=== PATIENT | male | born 1950 | race Caucasian/White ===

== ENCOUNTER 2020-12-28 06:00 | Outpatient (RCR) | payer MEDICARE, OTHER, SELFPAY | END 2021-01-09 23:59 | disposition home or self-care (01) | LOC: SPT 06:00 | PROVIDERS: Referring Provider Orthopaedic Surgery; Visit Provider Orthopaedic Surgery | DX: Z47.1 Aftercare following joint replacement surgery (principal); Z96.611 Presence of right artificial shoulder joint | CPT/HCPCS: 97110; 97161 ==

== ENCOUNTER 2021-01-10 06:00 | Outpatient (RCR) | payer MEDICARE, OTHER, SELFPAY | END 2021-02-08 16:50 | disposition home or self-care (01) | LOC: SPT 06:00 | PROVIDERS: Visit Provider Orthopaedic Surgery | DX: Z47.1 Aftercare following joint replacement surgery (principal); Z96.611 Presence of right artificial shoulder joint | CPT/HCPCS: 97110 ==

== ENCOUNTER 2021-11-17 11:51 | Outpatient (CLI) | payer MEDICARE, SELFPAY ==
--- NOTE | 2021-11-17 12:45 | XR_ITS ---
WS: [id number] RIGHT FOOT: 3 VIEW(S) TECHNIQUE: AP, oblique and lateral. HISTORY: L89.893 - Pressure ulcer of other site, stage 3 COMPARISON: None available. No acute fracture or dislocation. No destructive bone lesions are identified. 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 Seen only on the lateral projection is a superficial soft tissue ulceration along the plantar surface of the distal first toe. Ulcer measures 11 mm in length and extends 4 mm deep. The underlying bone r adiographically is normal. Large osteophyte at the Achilles insertion tendon. XR/XR foot RT min 3V* [id number] IMPRESSION: 1. Superficial soft tissue ulceration measures 11 x 4 mm along the plantar geremias face distal first toe. No osseous abnormality identified radiographically. 2. No acute fracture.
[2021-11-17 12:59] LABS: Erythrocyte Sedimentation Rate 21 mm/hr (0-10)
[2021-11-17 13:26] LABS: C Reactive Protein 4.3 mg/L (0.0-4.9)
== END 2021-11-17 11:52 | disposition home or self-care (01) ==
LOC: LAB 11:57
PROVIDERS: PCP Family Medicine; Visit Provider Nurse Practitioner Family
DX: L89.893 Pressure ulcer of other site, stage 3 (principal)
CPT/HCPCS: 36415; 73630; 85651; 86140

== ENCOUNTER → 2021-11-24 10:48 | Outpatient (BNVA) | payer MEDICARE, SELFPAY | PROVIDERS: PCP Family Medicine; Visit Provider Nurse Practitioner Family | DX: I96 Gangrene, not elsewhere classified (principal); L89.893 Pressure ulcer of other site, stage 3 | CPT/HCPCS: 11042 ==

== ENCOUNTER → 2021-12-01 10:51 | Outpatient (BNVA) | payer MEDICARE, SELFPAY | PROVIDERS: PCP Family Medicine; Visit Provider Thoracic Surgery (Cardiothoracic Vascular Surgery) | DX: I96 Gangrene, not elsewhere classified (principal); L89.893 Pressure ulcer of other site, stage 3 | CPT/HCPCS: 97597; A6250 ==

== ENCOUNTER → 2021-12-08 13:48 | Outpatient (BNVA) | payer MEDICARE, SELFPAY | PROVIDERS: PCP Family Medicine; Visit Provider Nurse Practitioner Family | DX: I96 Gangrene, not elsewhere classified (principal); L89.893 Pressure ulcer of other site, stage 3 | CPT/HCPCS: 11042 ==

== ENCOUNTER → 2021-12-15 13:05 | Outpatient (BNVA) | payer MEDICARE, SELFPAY | PROVIDERS: PCP Family Medicine; Visit Provider Nurse Practitioner Family | DX: I96 Gangrene, not elsewhere classified (principal); L89.893 Pressure ulcer of other site, stage 3 | CPT/HCPCS: 11042; A6212 ==

== ENCOUNTER → 2021-12-22 09:36 | Outpatient (BNVA) | payer MEDICARE, SELFPAY | PROVIDERS: PCP Family Medicine; Visit Provider Nurse Practitioner Family | DX: I96 Gangrene, not elsewhere classified (principal); L89.893 Pressure ulcer of other site, stage 3 | CPT/HCPCS: 11042 ==

== ENCOUNTER → 2021-12-29 09:20 | Outpatient (BNVA) | payer MEDICARE, SELFPAY | PROVIDERS: PCP Family Medicine; Visit Provider Nurse Practitioner Family | DX: I96 Gangrene, not elsewhere classified (principal); L89.893 Pressure ulcer of other site, stage 3 | CPT/HCPCS: 99213 ==

== ENCOUNTER → 2022-01-05 09:14 | Outpatient (BNVA) | payer MEDICARE, SELFPAY | PROVIDERS: PCP Family Medicine; Visit Provider Nurse Practitioner Family | DX: I96 Gangrene, not elsewhere classified (principal); L89.893 Pressure ulcer of other site, stage 3 | CPT/HCPCS: 11042 ==

== ENCOUNTER → 2022-01-12 09:11 | Outpatient (BNVA) | payer MEDICARE, SELFPAY | PROVIDERS: PCP Family Medicine; Visit Provider Nurse Practitioner Family | DX: I96 Gangrene, not elsewhere classified (principal); L89.893 Pressure ulcer of other site, stage 3 | CPT/HCPCS: 11042 ==

== ENCOUNTER → 2022-01-19 09:21 | Outpatient (BNVA) | payer MEDICARE, SELFPAY | PROVIDERS: PCP Family Medicine; Visit Provider Nurse Practitioner Family | DX: I96 Gangrene, not elsewhere classified (principal); L89.893 Pressure ulcer of other site, stage 3 | CPT/HCPCS: 11042 ==

== ENCOUNTER → 2022-01-26 09:52 | Outpatient (BNVA) | payer MEDICARE, SELFPAY | PROVIDERS: PCP Family Medicine; Visit Provider Nurse Practitioner Family | DX: I96 Gangrene, not elsewhere classified (principal); L89.893 Pressure ulcer of other site, stage 3 | CPT/HCPCS: 11042; A6206 ==

== ENCOUNTER → 2022-02-01 08:24 | Outpatient (BNVA) | payer MEDICARE, SELFPAY | PROVIDERS: PCP Family Medicine; Visit Provider Nurse Practitioner Family | DX: I96 Gangrene, not elsewhere classified (principal); L89.893 Pressure ulcer of other site, stage 3 | CPT/HCPCS: 11042; A6206; A6250 ==

== ENCOUNTER → 2022-02-09 08:58 | Outpatient (BNVA) | payer MEDICARE, SELFPAY | PROVIDERS: PCP Family Medicine; Visit Provider Nurse Practitioner Family | DX: I96 Gangrene, not elsewhere classified (principal); L89.893 Pressure ulcer of other site, stage 3 | CPT/HCPCS: 11042 ==

== ENCOUNTER → 2022-02-16 08:36 | Outpatient (BNVA) | payer MEDICARE, SELFPAY | PROVIDERS: PCP Family Medicine; Visit Provider Nurse Practitioner Family | DX: I96 Gangrene, not elsewhere classified (principal); L89.893 Pressure ulcer of other site, stage 3 | CPT/HCPCS: 11042 ==

== ENCOUNTER → 2022-02-23 08:56 | Outpatient (BNVA) | payer MEDICARE, SELFPAY | PROVIDERS: PCP Family Medicine; Visit Provider Thoracic Surgery (Cardiothoracic Vascular Surgery) | DX: I96 Gangrene, not elsewhere classified (principal); L89.893 Pressure ulcer of other site, stage 3 | CPT/HCPCS: 11042 ==

== ENCOUNTER → 2022-03-02 08:56 | Outpatient (BNVA) | payer MEDICARE, SELFPAY | PROVIDERS: PCP Family Medicine; Visit Provider Thoracic Surgery (Cardiothoracic Vascular Surgery) | DX: L89.893 Pressure ulcer of other site, stage 3 (principal) | CPT/HCPCS: 11042 ==

== ENCOUNTER → 2022-03-15 16:20 | Outpatient (BNVA) | payer MEDICARE, SELFPAY | PROVIDERS: PCP Family Medicine; Visit Provider Thoracic Surgery (Cardiothoracic Vascular Surgery) | DX: I96 Gangrene, not elsewhere classified (principal); L89.893 Pressure ulcer of other site, stage 3 | CPT/HCPCS: 11042 ==

== ENCOUNTER 2022-03-21 07:20 | Outpatient (CLI) | payer MEDICARE, SELFPAY ==
--- NOTE | 2022-03-21 07:15 | MR_ITS ---
WS: [id number] MRI RIGHT FOOT with and without CONTRAST. COMPARISON: Radiograph RIGHT foot 11/17/2021 Multiplanar, multisequence imaging is performed with and without contrast. MultiHance 20 mL IV. Abnormal signal distal phalanx of the first toe. Low signal on the T1 sequences with increased signal throughout the entire distal phalanx of the T2 and proton density sequence. Diffuse osseous enhancem ent on the postcontrast sequence. Enhancement extends through the interphalangeal joint. Soft tissue ulceration along the plantar medial aspect of the distal phalanx of the first toe measures 14 x 10 mm . There is a tract that extends to the cortex. Moderate amount of soft tissue edema with enhancement surrounding the first toe. No additional signal abnormalities to suggest cellulitis or osteomyelitis. MR/MR foot RT wo/w con [id number] IMPRESSION: 1. Osteomyelitis involving the distal phalanx of the first toe. 2. Diffuse cellulitis surrounding the first toe. 3. Soft tissue ulceration measuring 14 x 10 mm along the plantar medial aspect distal first phalanx with a tract extending to the cortex.
[2022-03-21] MEDS: gadobenate dimeglumine 20 mL vial IV (08:31)
== END 2022-03-21 07:21 | disposition home or self-care (01) ==
PROVIDERS: PCP Family Medicine; Visit Provider Thoracic Surgery (Cardiothoracic Vascular Surgery)
DX: L89.893 Pressure ulcer of other site, stage 3 (principal); M86.8X7 Other osteomyelitis, ankle and foot; L03.031 Cellulitis of right toe
CPT/HCPCS: 73720; A9577

== ENCOUNTER → 2022-03-22 10:21 | Outpatient (BNVA) | payer MEDICARE, SELFPAY | PROVIDERS: PCP Family Medicine; Visit Provider Thoracic Surgery (Cardiothoracic Vascular Surgery) | DX: I96 Gangrene, not elsewhere classified (principal); L89.893 Pressure ulcer of other site, stage 3 | CPT/HCPCS: 11042; 87070; 87077; 87176; 87186; 87205 ==

== ENCOUNTER → 2022-03-29 09:11 | Outpatient (BNVA) | payer MEDICARE, SELFPAY | PROVIDERS: PCP Family Medicine; Visit Provider Thoracic Surgery (Cardiothoracic Vascular Surgery) | DX: I96 Gangrene, not elsewhere classified (principal); L89.893 Pressure ulcer of other site, stage 3 | CPT/HCPCS: 11042 ==

== ENCOUNTER → 2022-03-31 11:35 | Outpatient (BNVA) | payer MEDICARE, SELFPAY | PROVIDERS: PCP Family Medicine; Visit Provider Podiatrist Foot & Ankle Surgery | DX: M86.171 Other acute osteomyelitis, right ankle and foot (principal); L97.512 Non-pressure chronic ulcer of other part of right foot with fat layer exposed; M20.31 Hallux varus (acquired), right foot; M20.32 Hallux varus (acquired), left foot; M20.41 Other hammer toe(s) (acquired), right foot; M20.42 Other hammer toe(s) (acquired), left foot | CPT/HCPCS: 11044; 73630; 99204 ==

== ENCOUNTER 2022-04-05 05:45 | Day surgery (SDC) | payer MEDICARE, SELFPAY ==
[2022-04-04 10:20] VITALS: BMI 27.1
[2022-04-05] VITALS (9 sets, daily range): BP systolic 105–143; BP diastolic 65–75; PULSE 61–70; RESP 14–18; TEMP 36.1–36.6; O2SAT 93–97
--- NOTE | 2022-04-05 06:08 | W.PM.OPSUD ---
Surgery/Procedure H&P Update DATE OF PROCEDURE: April 05, 2022 DATE H&P PERFORMED: 03/31/22 CHANGES TO PREVIOUS DOCUMENTATION: none PREOP DIAGNOSIS: Osteomyelitis right great toe PLANNED PROCEDURE: Operation Date: 04/05/22 07:00 Proposed Procedures p Incision of bone cortex with insertion of antibiotic spacer, right great toe 47706, L97.514(Right) - Arpit Mandujano DPM s insertion of antibiotic spacer, right great toe(Right) - Arpit Mandujano DPM
[2022-04-05] MEDS: sodium chloride 0.9% 1,000 ML 30 ML IV (06:24)
--- NOTE | 2022-04-05 06:42 | PM.OP ---
Operative Report Date of procedure: April 05, 2022 Pre-op diagnosis: Preop Diagnosis Osteomyelitis right great toe Post-op diagnosis: Osteomyelitis right great toe Post-op findings: Devitalized distal phalanx right great toe Procedure done: Incision of bone cortex right great toe. CPT code 18261 Implants: Simplex P with tobramycin, 4-0 nylon Specimens removed/disposition: Right great toe distal phalanx devitalized bone sent to microbiology for gram stain, culture and sensitivity Surgeon: Arpit Mandujano D.P.M. Transportation Maintenance Operator: Flaquita Pate Estimated blood loss: 5 14 IV fluids: None Urine output: None Complications: None Findings: Devitalized bone at the medial condyle distal phalanx of the right hallux. Brief History: 71-year-old male with neuropathy presents with a full-thickness wound probes to bone right great toe with localized erythema.? Has been present on and off since 2017.? MRI shows osteomyelitis of the distal phalanx right great toe.? On x-ray there is osteolysis of the medial cortex medial condyle distal phalanx of the right great toe without soft tissue of emphysema.? This was taken at today's visit per my interpretation right foot 3 views weightbearing.? Patient examined and evaluated, findings and treatment options were discussed with patient at length.? Patient is wanting to be more aggressive with treatments as this has been going on for greater than 5 years.? I discussed a variety of options consisting of continuation of wound care, offloading modalities and oral antibiotics versus PICC line.? Also discussed bone biopsy along with long-term antibiotics.? Also discussed surgical debridement of devitalized bone, bone biopsy and oral versus IV antibiotics pending blood culture results.? He is wishing to be more aggressive would like to proceed with debridement of devitalized bone with insertion of antibiotic impregnated cement spacer combining with or antibiotics guided by bone culture.? I reviewed at length with the patient, the risks, potential complications, benefits, alternatives, expectations, and typical outcomes associated with the surgery. The risks and potential complications were explained in detail, including but not limited to infection, wound dehiscence or soft tissue complications, bleeding and hematoma, chronic edema, neuritis or nerve damage producing numbness or chronic pain, CRPS, failure to relieve pain or worsening pain, thick / painful / unsightly scar, limited motion / stiffness, malposition, delayed union, malunion, or nonunion, fracture, reaction to implants, anesthetic complications, venous thromboembolism, and deformity recurrence.? I discussed the notion of no regrets with the patient as it pertains to complications and outcomes. The patient seemed to understand the nature of the proposed care and required convalescence. They asked appropriate questions, answered to their satisfaction. They are aware no guarantees can be made as to a satisfactory outcome and they understand there may be other possible unforeseen complications or outcomes not listed here that will be treated accordingly if they arise. There were no written or implied guarantees given to the patient. They gave informed consent to proceed. Procedure: Under mild sedation the patient was brought to the operating room and remained on the gurney in supine position. A timeout was performed. Anesthesia was then administered by the anesthesia service, local anesthesia was administered by myself consisting of one-to-one mixture 2% lidocaine and 0.5% Marcaine plain total of 30 cc in a right Holman block fashion. Well-padded pneumatic tourniquet applied to the right ankle. Right lower extremity was scrubbed, prepped and draped utilizing normal aseptic technique. Tourniquet was inflated to 250 mmHg. No Esmarch bandage was utilized. Attention was directed to the medial aspect of the right great toe where a linear incision was made at the level of the distal phalanx coursing proximally over the proximal phalanx head full-thickness down to bone. Devitalized bone was appreciated with discoloration and poor density, bone was soft most severely at the medial condyle of the distal phalanx of the right great toe. An oblique osteotomy from medial to lateral and oriented distal to proximal to encompass more of the devitalized bone was performed with a sagittal saw and all devitalized bone cortex and medullary bone was incised and passed from the operative field. No further devitalized bone appreciated. Soft tissue was viable. Plantar wound left undisturbed as to not directly contaminate or extend bioburden deeper in proximity to bone. The incision was irrigated with copious months of Staticin solution. Simplex P with tobramycin was then packed at the area of bone excision approximately same volume of bone that was excised was replaced with antibiotic impregnated cement spacer. Incision was further irrigated and closed with 4-0 nylon. Tourniquet was then deflated and a prompt hyperemic response was noted to the distal digits of the right foot. Incision was dressed with Adaptic, sterile 4 x 4, Kerlix and Coban. Cam boot was applied to the right lower extremity. Patient tolerated the procedure and anesthesia well and was transferred to the PACU with vital signs stable and vascular status intact. Following a period of postoperative monitoring he will be discharged home is to be largely nonweightbearing to the right lower extremity may heel touch for transfers with a cam boot to the right foot. Advised him to begin taking Bactrim DS as previously prescribed by another provider now that bone culture has been sent. Will adjust antibiotics accordingly once cultures yield further information.
--- NOTE | 2022-04-05 06:56 | ANES.PREANE2 ---
Pre-Anesthetic Assessment Height/Weight: Height 1.8 m Weight 88.451 kg Temp Pulse Resp BP Pulse Ox O2 Del Method 97.6 F 70 15 113/73 96 04/05/22 06:13 04/05/22 06:13 04/05/22 06:13 04/05/22 06:13 04/05/22 06:13 04/05/22 06:13 Preop Diagnosis: Osteomyelitis right great toe Operation Date: 04/05/22 07:00 Proposed Procedures p Incision of bone cortex with insertion of antibiotic spacer, right great toe 48422, L97.514(Right) - Arpit Mandujano DPM s insertion of antibiotic spacer, right great toe(Right) - Arpit Mandujano DPM Familial anesthetic complications: Slow to wake up Was Beta Nicci taken within 24 hours: N/A Was Clonidine taken within 24 hours: N/A Last intake: Intake Last Liquid Date 04/04/22 Last Liquid Time 18:00 Last Solid Date 04/04/22 Last Solid Time 18:00 Social Tobacco and No alcohol Exam alert, oriented x 3, clear to auscultation bilaterally and regular rate & rhythm Airway Mallampati: Class II Dentition: other (no teeth) CV/HEM Coronary Artery Disease (Stents), Hypertension and Myocardial Infarction GI Gastroesophageal Reflux Disease Metabolic Hyperlipidemia Anesthetic Plan ASA status: 3 Anesthesia: MAC Risk of > 500 ml blood loss (7ml/kg in children): No Medications/Allergies Home Medications Medication Instructions Recorded Confirmed Last Taken Type escitalopram oxalate 20 mg tablet 20 mg PO DAILY 02/22/21 04/04/22 04/04/22 History (Lexapro) metoprolol tartrate 50 mg tablet 50 mg PO BID 02/22/21 04/05/22 04/04/22 19:00 History venlafaxine 150 mg 150 mg PO DAILY 02/22/21 04/04/22 04/04/22 History capsule,extended release 24 hr (Effexor XR) aspirin 81 mg tablet,delayed 81 mg PO DAILY 04/04/22 04/04/22 04/04/22 History release tmxezwfa-zid-ykocw acid 300 1 tab PO DAILY 04/04/22 04/04/22 04/04/22 History mcg-lycopene 600 mcg-lutein 300 mcg tablet (Men 50 Plus Multivitamin) pantoprazole 40 mg tablet,delayed 40 mg PO BID 04/04/22 04/04/22 04/04/22 History release hydrocodone 5 mg-acetaminophen 325 1 tab PO Q8H PRN pain 7 days #14 04/05/22 Unknown Rx mg tablet tabs Allergies Allergy/AdvReac Type Severity Reaction Status Date / Time codeine Allergy Mild Rash Verified 03/31/22 10:59 morphine Allergy Mild Rash Verified 03/31/22 10:59 Current Medications Generic Name Dose Route Start Last Admin Trade Name Freq PRN Reason Stop Dose Admin Sodium Chloride 1,000 mls @ 30 mls/hr 04/05/22 06:00 04/05/22 06:24 Sodium Chloride 0.9% IV 04/06/22 05:59 30 mls/hr .Q24H KADEN Administration Data Anesthesia Cardiac Studies: No Data to Display
[2022-04-05] MEDS: clindamycin 600 MG/50 ML PREMIX 100 MG IV (07:00)
[2022-04-05] MEDS: lidocaine 2% INJ 20 mL (07:26)
--- NOTE | 2022-04-05 14:12 | ANE.PACU2 ---
Inpatient post-anesthesia follow up: Airway intact: Yes Vital signs: Temperature 98 F Pulse Rate 67 Respiratory Rate 17 Blood Pressure 143/70 Pulse Oximetry 96 Oxygen Delivery Me thod Room Air Oxygen Flow Rate Fraction of Inspir ed Oxygen Hydration adequate: Yes Nausea and vomiting: No Pain level: 1 Mental status: Baseline
== END 2022-04-05 08:45 | disposition home or self-care (01) ==
PROVIDERS: PCP Family Medicine; Visit Provider Podiatrist Foot & Ankle Surgery
PROC: (CPT 28005; principal; 2022-04-05 07:00)
PROC: (CPT 28005; 2022-04-05 07:00)
DX: M86.8X7 Other osteomyelitis, ankle and foot (principal); I25.10 Atherosclerotic heart disease of native coronary artery without angina pectoris; Z95.5 Presence of coronary angioplasty implant and graft; I10 Essential (primary) hypertension; I25.2 Old myocardial infarction; K21.9 Gastro-esophageal reflux disease without esophagitis; E78.5 Hyperlipidemia, unspecified; Z79.82 Long term (current) use of aspirin
CPT/HCPCS: 28005; 87070; 87176; 87205; J2704; J3490; J7030

== ENCOUNTER → 2022-04-14 12:59 | Outpatient (BNVA) | payer MEDICARE, SELFPAY | PROVIDERS: PCP Family Medicine; Visit Provider Podiatrist Foot & Ankle Surgery | DX: Z98.890 Other specified postprocedural states (principal) | CPT/HCPCS: 99024 ==

== ENCOUNTER → 2022-04-21 10:02 | Outpatient (BNVA) | payer MEDICARE, SELFPAY | PROVIDERS: PCP Family Medicine; Visit Provider Podiatrist Foot & Ankle Surgery | DX: Z98.890 Other specified postprocedural states (principal); M86.9 Osteomyelitis, unspecified | CPT/HCPCS: 73630; 99024 ==

== ENCOUNTER → 2022-05-08 08:16 | Outpatient (BNVA) | payer MEDICARE, SELFPAY | PROVIDERS: PCP Family Medicine; Visit Provider Podiatrist Foot & Ankle Surgery | DX: Z98.890 Other specified postprocedural states (principal); M86.9 Osteomyelitis, unspecified | CPT/HCPCS: 99214 ==

== ENCOUNTER 2022-06-02 08:46 | Day surgery (SDC) | payer MEDICARE, SELFPAY ==
[2022-06-01 09:43] VITALS: BMI 26.4
[2022-06-02] VITALS (7 sets, daily range): BP systolic 84–133; BP diastolic 55–72; PULSE 67–75; RESP 12–18; TEMP 36.1–36.4; O2SAT 91–97
--- NOTE | 2022-06-02 09:15 | ANES.PREANE2 ---
Pre-Anesthetic Assessment Height/Weight: Height 1.8 m Weight 86.183 kg Temp Pulse Resp BP Pulse Ox O2 Del Method 97 F L 67 16 133/72 96 06/02/22 09:06 06/02/22 09:06 06/02/22 09:06 06/02/22 09:06 06/02/22 09:06 06/02/22 09:06 Preop Diagnosis: Retained hardware right foot Operation Date: 06/02/22 11:10 Proposed Procedures p ?Hardware removal right foot 66031,M86.9(Right) - Arpit Mandujano DPM Familial anesthetic complications: None Was Beta Nicci taken within 24 hours: Yes Was Clonidine taken within 24 hours: N/A Last intake: Intake Last Liquid Date 06/01/22 Last Liquid Time 19:00 Last Solid Date 06/01/22 Last Solid Time 19:00 Social Tobacco and No alcohol Exam alert, oriented x 3, clear to auscultation bilaterally and regular rate & rhythm Airway Mallampati: Class II Dentition: full CV/HEM Coronary Artery Disease and Hypertension GI Gastroesophageal Reflux Disease Metabolic Diabetes Mellitus and Hyperlipidemia Anesthetic Plan ASA status: 3 Anesthesia: MAC Risk of > 500 ml blood loss (7ml/kg in children): No Medications/Allergies Home Medications Medication Instructions Recorded Confirmed Last Taken Type escitalopram oxalate 20 mg tablet 20 mg PO DAILY 02/22/21 06/01/22 06/01/22 07:00 History (Lexapro) metoprolol tartrate 50 mg tablet 50 mg PO BID 02/22/21 06/01/22 06/01/22 07:00 History venlafaxine 150 mg 150 mg PO DAILY 02/22/21 06/01/22 06/01/22 07:00 History capsule,extended release 24 hr (Effexor XR) aspirin 81 mg tablet,delayed 81 mg PO DAILY 04/04/22 06/01/22 06/01/22 07:00 History release grvwafiw-fhn-sxthi acid 300 1 tab PO DAILY 04/04/22 06/01/22 06/01/22 07:00 History mcg-lycopene 600 mcg-lutein 300 mcg tablet (Men 50 Plus Multivitamin) pantoprazole 40 mg tablet,delayed 40 mg PO BID 04/04/22 06/01/22 06/01/22 History release Allergies Allergy/AdvReac Type Severity Reaction Status Date / Time codeine Allergy Mild Rash Verified 06/02/22 09:02 morphine Allergy Mild Rash Verified 06/02/22 09:02 Data Anesthesia Cardiac Studies: No Data to Display
[2022-06-02] MEDS: sodium chloride 0.9% 1,000 ML 30 ML IV (09:17)
--- NOTE | 2022-06-02 09:40 | W.PM.OPSUD ---
Surgery/Procedure H&P Update DATE OF PROCEDURE: June 02, 2022 DATE H&P PERFORMED: 05/12/22 CHANGES TO PREVIOUS DOCUMENTATION: none PREOP DIAGNOSIS: Retained hardware right foot PLANNED PROCEDURE: Operation Date: 06/02/22 11:10 Proposed Procedures p ?Hardware removal right foot 82473,M86.9(Right) - Arpit Mandujano DPM
[2022-06-02] MEDS: ceFAZolin 2,000 MG in sodium chloride 0.9% (plus) 50 ML 100 MG IV (09:53)
--- NOTE | 2022-06-02 10:16 | P.OP_ITS ---
Operative Report Date of procedure: June 02, 2022 Pre-op diagnosis: Preop Diagnosis Retained hardware right foot Post-op diagnosis: Same Procedure done: Hardware removal right foot Implants: 4-0 Vicryl, 4-0 nylon Specimens removed/disposition: Cement spacer removed from right great toe Pathology: None Surgeon: Arpit Mandujano D.P.M. Clinical Nurse Reviewer: See intraoperative documentation Estimated blood loss: Less than 5 6 IV fluids: None Urine output: None Complications: None Brief History: History of osteomyelitis of the right great toe. Bone culture and long-term antibiotics yielded positive outcomes. He is epithelialized. Still has some swelling at the right great toe. I think contributing to his swelling is the implanted cement spacer. Discussed removal patient wishes to proceed with removal. I reviewed at length with the patient, the risks, potential complications, benefits, alternatives, expectations, and typical outcomes associated with the surgery. The risks and potential complications were explained in detail, including but not limited to infection, wound dehiscence or soft tissue complications, bleeding and hematoma, chronic edema, neuritis or nerve damage producing numbness or chronic pain, CRPS, failure to relieve pain or worsening pain, thick / painful / unsightly scar, limited motion / stiffness, malposition, delayed union, malunion, or nonunion, fracture, reaction to implants, anesthetic complications, venous thromboembolism, and deformity recurrence. I discussed the notion of no regrets with the patient as it pertains to complications and outcomes. The patient seemed to understand the nature of the proposed care and required convalescence. They asked appropriate questions, answered to their satisfaction. They are aware no guarantees can be made as to a satisfactory outcome and they understand there may be other possible unforeseen complications or outcomes not listed here that will be treated accordingly if they arise. There were no written or implied guarantees given to the patient. They gave informed consent to proceed. Patient is n.p.o., informed consent signed by patient and myself. I initialed his right foot. Procedure: Under mild sedation the patient was brought to the operating room and remained on the gurney in supine position. A timeout was performed. Anesthesia was then administered by the anesthesia service. Local anesthesia was injected by myself consisting of 10 cc of 0.5 sent Marcaine plain in a right hallux block fashion. Well-padded pneumatic tourniquet was applied to the right ankle. Right lower extremity was scrubbed, prepped and draped utilizing normal aseptic technique. Attention was directed to the medial aspect of the right great toe where a full- thickness incision was performed with 15 blade, retained hardware was identified consistent with cement spacer, this was extracted in total and passed from the operative field. Direct visualization, palpation and C-arm confirmed no remaining foreign body or hardware. The incision was irrigated with copious amounts of sterile saline solution. Smooth range of motion at the hallux interphalangeal joint was appreciated. The incision was closed in a layered fashion with 4-0 Vicryl subcutaneous tissue and 4-0 nylon the skin. Dressings consisting of Adaptic, sterile 4 x 4's, Kerlix and Diaz wrap. Cam boot was applied. Tourniquet was then deflated and a prompt hyperemic response was noted to the distal digits of the right foot. Patient tolerated the procedure and anesthesia well and was transferred to the PACU with vital signs stable and vascular status intact. Following a period of postoperative monitoring he will be discharged home, may be weightbearing heel touch for transfers otherwise rest and elevate.
--- NOTE | 2022-06-02 12:43 | ANE.PACU2 ---
Inpatient post-anesthesia follow up: Airway intact: Yes Vital signs: Temperature 97.3 F Pulse Rate 68 Respiratory Rate 16 Blood Pressure 106/65 Pulse Oximetry 94 Oxygen Delivery Me thod Room Air Oxygen Flow Rate 6 Fraction of Inspir ed Oxygen Hydration adequate: Yes Nausea and vomiting: No Pain level: 1 Mental status: Baseline
== END 2022-06-02 11:33 | disposition home or self-care (01) ==
PROVIDERS: PCP Family Medicine; Visit Provider Podiatrist Foot & Ankle Surgery
PROC: (CPT 20680; principal; 2022-06-02 11:00)
DX: T84.89XA Other specified complication of internal orthopedic prosthetic devices, implants and grafts, initial encounter (principal); Y83.8 Other surgical procedures as the cause of abnormal reaction of the patient, or of later complication, without mention of misadventure at the time of the procedure; I25.10 Atherosclerotic heart disease of native coronary artery without angina pectoris; I10 Essential (primary) hypertension; K21.9 Gastro-esophageal reflux disease without esophagitis; E11.9 Type 2 diabetes mellitus without complications; E78.5 Hyperlipidemia, unspecified; Z79.82 Long term (current) use of aspirin
CPT/HCPCS: 20680; J0690; J1100; J2250; J2405; J2704; J3010; J3490; J7030

== ENCOUNTER → 2022-06-06 14:03 | Outpatient (BNVA) | payer MEDICARE, SELFPAY | PROVIDERS: PCP Family Medicine; Visit Provider Podiatrist Foot & Ankle Surgery | DX: Z98.890 Other specified postprocedural states (principal) | CPT/HCPCS: 99024 ==

== ENCOUNTER → 2022-06-14 07:42 | Outpatient (BNVA) | payer MEDICARE, SELFPAY | PROVIDERS: PCP Family Medicine; Visit Provider Podiatrist Foot & Ankle Surgery | DX: Z98.890 Other specified postprocedural states (principal) | CPT/HCPCS: 99024 ==

== ENCOUNTER → 2023-01-24 08:24 | Outpatient (BNVA) | payer MEDICARE, SELFPAY | PROVIDERS: PCP Family Medicine; Visit Provider Podiatrist Foot & Ankle Surgery | DX: S91.114A Laceration without foreign body of right lesser toe(s) without damage to nail, initial encounter; W20.8XXA Other cause of strike by thrown, projected or falling object, initial encounter | CPT/HCPCS: 73630; 99213 ==

== ENCOUNTER → 2023-01-30 07:59 | Outpatient (BNVA) | payer MEDICARE, SELFPAY | PROVIDERS: PCP Family Medicine; Visit Provider Podiatrist Foot & Ankle Surgery | DX: S99.921A Unspecified injury of right foot, initial encounter (principal); S91.114A Laceration without foreign body of right lesser toe(s) without damage to nail, initial encounter; W20.8XXA Other cause of strike by thrown, projected or falling object, initial encounter | CPT/HCPCS: 99213 ==

== ENCOUNTER → 2023-02-06 07:30 | Outpatient (BNVA) | payer MEDICARE, SELFPAY | PROVIDERS: PCP Family Medicine; Visit Provider Podiatrist Foot & Ankle Surgery | DX: S91.114A Laceration without foreign body of right lesser toe(s) without damage to nail, initial encounter; W20.8XXA Other cause of strike by thrown, projected or falling object, initial encounter | CPT/HCPCS: 99213 ==

== ENCOUNTER → 2023-02-14 07:47 | Outpatient (BNVA) | payer MEDICARE, SELFPAY | PROVIDERS: PCP Family Medicine; Visit Provider Podiatrist Foot & Ankle Surgery | DX: S91.114A Laceration without foreign body of right lesser toe(s) without damage to nail, initial encounter (principal); S99.921A Unspecified injury of right foot, initial encounter; W20.8XXA Other cause of strike by thrown, projected or falling object, initial encounter | CPT/HCPCS: 73630; 99213 ==

== ENCOUNTER → 2023-02-28 07:16 | Outpatient (BNVA) | payer MEDICARE, SELFPAY | PROVIDERS: PCP Family Medicine; Visit Provider Podiatrist Foot & Ankle Surgery | DX: S99.921D Unspecified injury of right foot, subsequent encounter (principal); S91.114D Laceration without foreign body of right lesser toe(s) without damage to nail, subsequent encounter; X58.XXXD Exposure to other specified factors, subsequent encounter | CPT/HCPCS: 99213 ==